=== PATIENT | female | born 1960 | race Caucasian/White ===

== ENCOUNTER → 2017-12-30 14:51 | Outpatient (CLI) | payer OTHER, MEDICAID, SELFPAY ==
[2017-12-30 15:33] LABS: Appearance Urine UA CLEAR; Bilirubin Urine UA NEGATIVE (NEGATIVE); Color Urine UA YELLOW; Glucose Urine UA NEGATIVE (Normal); Ketones Urine UA NEGATIVE (NEGATIVE); Leukocyte Esterase Urine UA 1+ (NEGATIVE); Nitrite Urine UA NEGATIVE (NEGATIVE); Occult Blood Urine UA 1+ (Negative); Protein Urine UA NEGATIVE (Negative); Specific Gravity Urine UA <=1.005 (1.000-1.035); Urobilinogen Urine UA 0.2 E.U./dL (0.2); pH Urine UA 6.5 (4.5-8.0)
[2017-12-30 15:43] LABS: Amorphous Sediment Urine 1+; Bacteria Urine Occasional (0-1); RBC Urine 1-5/HPF (0-5/HPF); Squamous Epithelial Cell Urine 0-1 /HPF; WBC Urine 10-30/HPF (0-5/HPF)
[2017-12-30 15:44] LABS: Culture Indicated Urine Specimen Cultured
== END ==
PROVIDERS: PCP Family Medicine; Visit Provider Family Medicine
DX: R30.0 Dysuria (principal)
CPT/HCPCS: 81001; 87086

== ENCOUNTER → 2017-12-31 09:58 | Outpatient (CLI) | payer OTHER, MEDICAID, SELFPAY ==
[2017-12-31 12:01] LABS: Hepatitis B Surface Antigen NEGATIVE s/c (NEGATIVE)
[2017-12-31 12:18] LABS: HIV 1 and 2 Antibody NEGATIVE (NEGATIVE); Hep C Virus Ab w/Reflex Quant NEGATIVE s/c (NEGATIVE)
[2017-12-31 12:26] LABS: Urine N gonorrhoeae NOT DETECTED
[2017-12-31 12:36] LABS: Urine Chlamydia NOT DETECTED
[2018-01-07 12:50] LABS: Rapid Plasma Reagin NON-REACTIVE
== END ==
PROVIDERS: PCP Family Medicine
DX: Z11.3 Encounter for screening for infections with a predominantly sexual mode of transmission (principal)
CPT/HCPCS: 36415; 86592; 86703; 86803; 87340; 87491; 87591

== ENCOUNTER → 2018-01-01 12:06 | Outpatient (CLI) | payer OTHER, MEDICAID, SELFPAY ==
--- NOTE | 2018-01-01 12:09 | DI.RAD.S_ITS ---
PROCEDURE: XR WRIST RT MIN 3V INDICATIONS: right wrist pain and swelling after blunt injury TECHNIQUE: 3 views of the wrist were acquired. COMPARISON: None. FINDINGS: Bones: No fractures or dislocations. No suspicious bony lesions. Scaphoid view: Not requested. Soft tissues: No suspicious soft tissue calcifications. IMPRESSION: No fracture. No acute osseous lesion. If symptoms and/or clinical suspicion for pathology persists, further assessment with repeat radiographs or advanced imaging (e.g. CT, MRI or bone scan) may be helpful for further assessment. Dictated by: Rhona Noe MD, PhD on 01/01/2018 at 12:16 Approved by: Rhona Noe MD, PhD on 01/01/2018 at 12:17
== END ==
PROVIDERS: PCP Family Medicine; Visit Provider Family Medicine
DX: M25.531 Pain in right wrist (principal)
CPT/HCPCS: 73110

== ENCOUNTER → 2018-01-12 15:47 | Outpatient (CLI) | payer OTHER, MEDICAID, SELFPAY | PROVIDERS: PCP Family Medicine; Visit Provider Family Medicine | DX: N39.0 Urinary tract infection, site not specified (principal) | CPT/HCPCS: 87086 ==

== ENCOUNTER → 2018-02-24 15:04 | Outpatient (CLI) | payer OTHER, MEDICAID, SELFPAY ==
--- NOTE | 2018-02-24 15:08 | DI.RAD.S_ITS ---
PROCEDURE: XR LUMBAR SPINE 2-3V INDICATIONS: Scoliosis TECHNIQUE: 3 views of the lumbar spine were acquired. COMPARISON: None. FINDINGS: Bones: 5 [id number] vertebrae are present. There is normal bony alignment. No vertebral body compression fractures. No suspicious bony lesions. Soft tissues: Overlying bowel gas pattern is normal. No suspicious soft tissue calcifications. IMPRESSION: Degenerative disc disease is mild, but facet osteoarthritis is moderately severefrom C4-S1, to the degree that significant spinal or foraminal stenosis would be expected bilaterally at this region. Dictated by: Franki Prado M.D. on 02/24/2018 at 15:52 Approved by: Franki Prado M.D. on 02/24/2018 at 15:53
--- NOTE | 2018-02-24 15:08 | DI.RAD.S_ITS ---
PROCEDURE: XR CERVICAL SPINE 2V OR 3V INDICATIONS: Scoliosis TECHNIQUE: 3 view(s) of the cervical spine were acquired. COMPARISON: None. FINDINGS: Bones: No fractures or dislocations to the T1 level. The lateral masses of C1 appear intact on the odontoid view. No suspicious bony lesions. There is focal kyphosis centered at C5-6 related to presence of moderately severe degenerative disc disease and endplate osteophyte formation with disc height reduction at this level, without subluxation. A slightly lesser degree of degenerative changes seen at C6-7. On the frontal projection facet osteoarthritis is moderately severe through these areas likely contributing to significant spinal and foraminal stenosis. Soft tissues: No prevertebral soft tissue swelling. IMPRESSION: Moderately severe to severe degenerative disc disease and facet osteoarthritis from C5-C7, most pronounced at C5-6 where focal kyphosis is associated. Significant spinal or foraminal stenosis would be expected, followup by MR scanning may be warranted. Dictated by: Franki Prado M.D. on 02/24/2018 at 15:50 Approved by: Franki Prado M.D. on 02/24/2018 at 15:51
--- NOTE | 2018-02-24 15:08 | DI.RAD.S_ITS ---
PROCEDURE: XR THORACIC SPINE 3V INDICATIONS: Scoliosis TECHNIQUE: 3 views of the thoracic spine were acquired. COMPARISON: None. FINDINGS: Bones: No fractures or dislocations. No suspicious bony lesions. 12 pairs of ribs are noted, and appear intact where visualized. There is minimal convex rightward scoliosis centered at the low thoracic spine Soft tissues: No paravertebral stripe thickening. IMPRESSION: Degenerative disc disease along the thoracic spine is mild, no subluxation is associated. There is no sign of recent compression fracture or chronic compression fracture, and minimal convex rightward scoliosis is centered at the lower third of the thoracic spine. Dictated by: Franki Prado M.D. on 02/24/2018 at 15:51 Approved by: Franki Prado M.D. on 02/24/2018 at 15:52
--- NOTE | 2018-02-24 15:08 | DI.RAD.S_ITS ---
PROCEDURE: XR ELBOW RT MIN 3V INDICATIONS: right elbow pain TECHNIQUE: Pre-views of the elbow were acquired. COMPARISON: None. FINDINGS: Bones: No fractures or dislocations. No suspicious bony lesions. Soft tissues: No elbow joint effusion. No suspicious soft tissue calcifications. IMPRESSION: No, found. Source of elbow pain is not seen. Dictated by: Franki Prado M.D. on 02/24/2018 at 15:53 Approved by: Franki Prado M.D. on 02/24/2018 at 15:53
== END ==
PROVIDERS: PCP Family Medicine; Referring Provider Family Medicine; Visit Provider Family Medicine
DX: M50.30 Other cervical disc degeneration, unspecified cervical region (principal); M47.812 Spondylosis without myelopathy or radiculopathy, cervical region; M40.292 Other kyphosis, cervical region; M51.34 Other intervertebral disc degeneration, thoracic region; M51.36 Other intervertebral disc degeneration, lumbar region; M47.816 Spondylosis without myelopathy or radiculopathy, lumbar region; M25.521 Pain in right elbow
CPT/HCPCS: 72040; 72072; 72100; 73080

== ENCOUNTER → 2018-04-06 15:22 | Outpatient (CLI) | payer OTHER, MEDICAID, SELFPAY ==
--- NOTE | 2018-04-06 15:24 | DI.RAD.S_ITS ---
PROCEDURE: XR FINGER RT MIN 2V INDICATIONS: Right thumb pain TECHNIQUE: AP hand, 2 views of the first finger(s) acquired. COMPARISON: None. FINDINGS: Bones: No fractures or dislocations. No suspicious bony lesions. Soft tissues: No suspicious soft tissue calcifications. IMPRESSION: Mild degenerative osteoarthritis at the base of the first proximal phalanx, and base of the first metacarpal. No subluxation is associated. Dictated by: Franki Prado M.D. on 04/06/2018 at 15:48 Approved by: Franki Prado M.D. on 04/06/2018 at 15:48
== END ==
PROVIDERS: PCP Family Medicine; Visit Provider Family Medicine
DX: M79.644 Pain in right finger(s) (principal); M19.041 Primary osteoarthritis, right hand
CPT/HCPCS: 73140

== ENCOUNTER → 2018-09-13 10:31 | Outpatient (CLI) | payer OTHER, MEDICAID, SELFPAY ==
[2018-09-13 12:03] LABS: Add Manual Diff / Slide Review NO; Basophils Absolute Auto 100 /uL (0-100); Basophils Percent Auto 1.3 % (0-2); Eosinophils Absolute Auto 200 /uL (0-450); Eosinophils Percent Auto 4.2 % (2-4); Hemoglobin 13.8 g/dL (12.0-16.0); Lymphocytes Absolute Auto 1600 /uL (1100-4500); Lymphocytes Percent Auto 28.2 % (25-40); Mean Corpuscular HGB Conc 32.8 % (30-36); Mean Corpuscular Hemoglobin 31.5 PG (26-34); Mean Corpuscular Volume 95.9 fL (80-100); Monocytes Absolute Auto 400 /uL (0-900); Monocytes Percent Auto 7.8 % (3-14); Neutrophils Absolute Auto 3300 /uL (1500-7000); Neutrophils Percent Auto 58.5 % (50-75); Platelet Count 222 X10^3/uL (150-400); Red Blood Cell Count 4.38 X10^6/uL (4.0-5.2); White Blood Cell Count 5.7 X10^3/uL (4.5-11.0)
[2018-09-13 13:33] LABS: Alanine Aminotransferase 28 IU/L (9-52); Albumin 4.4 g/dL (3.5-5.0); Albumin Globulin Ratio 1.4 (1.0-2.8); Alkaline Phosphatase 41 U/L (38-126); Aspartate Aminotransferase 20 IU/L (14-36); BUN Creatinine Ratio 17.8 (6-22); Bilirubin Total 0.7 mg/dL (0.2-1.3); Blood Urea Nitrogen 16 mg/dL (7-17); Calcium 9.4 mg/dL (8.4-10.2); Carbon Dioxide 28 mmol/L (22-32); Chloride 103 mmol/L (98-107); Cholesterol 203 mg/dL (140-199); Estimated Glomerular Filt Rate > 60.0 mL/min (>60); Globulin 3.1 g/dL (1.7-4.1); Glucose 93 mg/dL (70-100); HDL Cholesterol 52 mg/dL (40-60); HEMOLYSIS < 15 (0-50); LDL Cholesterol Calculated 133 mg/dL (<100); Sodium 139 mmol/L (137-145); Total Protein 7.5 g/dL (6.3-8.2); Triglycerides 88 mg/dL (35-150)
[2018-09-13 13:42] LABS: T4 Total Thyroxine 4.88 ug/dL (5.5-11.0)
== END ==
PROVIDERS: PCP Family Medicine; Visit Provider Nurse Practitioner Family
DX: E03.9 Hypothyroidism, unspecified (principal); Z76.0 Encounter for issue of repeat prescription
CPT/HCPCS: 36415; 80053; 80061; 84436; 85025

== ENCOUNTER → 2019-08-02 14:31 | Outpatient (CLI) | payer OTHER, MEDICAID, SELFPAY ==
[2019-08-02 14:41] LABS: Bacteria Urine None Seen; WBC Urine None Seen (0-5/HPF)
[2019-08-02 15:07] LABS: Appearance Urine UA CLEAR; Bilirubin Urine UA NEGATIVE (NEGATIVE); Color Urine UA YELLOW; Glucose Urine UA NEGATIVE (Negative); Ketones Urine UA NEGATIVE (NEGATIVE); Leukocyte Esterase Urine UA NEGATIVE (NEGATIVE); Nitrite Urine UA NEGATIVE (Negative); Occult Blood Urine UA TRACE-INTACT (Negative); Protein Urine UA NEGATIVE (Negative); Urobilinogen Urine UA 0.2 E.U./dL (0.2)
[2019-08-02 15:12] LABS: pH Urine UA 7.5 (4.5-8.0)
[2019-08-02 15:14] LABS: Amorphous Sediment Urine 2+; Culture Indicated Urine Cult Not Indicated; RBC Urine 5-10/HPF (0-5/HPF); Squamous Epithelial Cell Urine 0-1 /HPF (0-5/HPF)
== END ==
PROVIDERS: Visit Provider Registered Nurse
DX: R31.21 Asymptomatic microscopic hematuria (principal)
CPT/HCPCS: 81001

== ENCOUNTER 2019-09-16 21:08 | Emergency (ER) | payer OTHER, MEDICAID, SELFPAY ==
[2019-09-16 21:16] VITALS: BP 119/77; PULSE 76; RESP 18; TEMP 36.1; O2SAT 98
--- NOTE | 2019-09-16 21:34 | PC.NURSE ---
Left jaw swelling with tooth pain;
--- NOTE | 2019-09-16 22:03 | ED_ITS ---
HPI - Skin/Abscess/Foreign Bdy General Chief complaint: Skin/Abscess/Foreign Body Stated complaint: SWELLING OF THE JAW PAIN Time Seen by Provider: 09/16/19 22:04 Source: patient Mode of arrival: Ambulatory Limitations: no limitations History of Present Illness HPI narrative: This is a 60-year-old female comes emergency department with complaint of swelling of the left side of her drop. 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 She states she has been grinding her teeth and not wearing her bite guard. She states she noticed swelling and discomfort in the last 24 hours. She does have a tooth on that side that has been seen by a dentist and told there was decay but that it was stable. Patient thinks that the grinding may have irritated a nerve or caused the swelling. She states that there is pain over several of the teeth but actually a 2 in front of the area where there is decay are the ones that are tender. She has appreciated swelling on the outer cheek and inside the cheek. She has not appreciated any redness. Patient has not had any discharge or drainage. She denies any fevers. No swelling of the oropharynx or tongue. No nausea or vomiting. She states she tried Tylenol with minimal improvement. She then had aspirin and several sips of whiskey along with ice packs for pain control. Related Data Home Medications Medication Instructions Recorded Confirmed [raw adrenals] #0 03/25/17 03/10/18 Previous Rx's Medication Instructions Recorded estradiol 1 mg tablet 1 mg PO QDAY #90 tab 06/02/18 progesterone micronized 100 mg 100 mg PO QDAY #90 cap 06/02/18 capsule sumatriptan succinate 50 mg tablet 50 mg PO BID PRN #60 tab 06/02/18 thyroid (pork) 120 mg tablet 120 mg PO QDAY #30 tab 06/02/18 mirtazapine 45 mg tablet 45 mg PO HS #15 tab 07/14/18 acetaminophen-codeine 1 tab PO TID PRN #5 tab 09/16/19 [Tylenol-Codeine #3] penicillin V potassium 500 mg PO QID #40 tab 09/16/19 Allergies Allergy/AdvReac Type Severity Reaction Status Date / Time No Known Allergies Allergy Uncoded 02/24/18 14:37 Review of Systems Review of Systems ROS Unobtainable: All systems reviewed & are unremarkable except as noted in HPI and below Patient History Medical History Acquired hypothyroidism (Chronic 11/24/16) Ankle pain (Resolved Unknown) Anxiety (Chronic Unknown) Cervical spine disease (Chronic Unknown) CHF (congestive heart failure) (Resolved ~10/2016) Chickenpox (Resolved) Chronic back pain (Chronic Unknown) Fibroids (Resolved 1996) Foot pain (Resolved Unknown) Generalized headaches (Chronic Unknown) Hx of (Resolved Unknown) Hx of heart failure (Resolved ~08/2016) Migraines (Chronic Unknown) Migraines (Chronic Unknown) Mumps (Resolved) Plantar fasciitis (Resolved Unknown) Plantar warts (Resolved 2007) Pneumonia (Resolved ~08/2016) Shoulder pain (Resolved Unknown) Surgical History H/O hysterectomy for benign disease (Resolved ~2006) Hx of appendectomy (Resolved 1996) Hx of section (Resolved 1994) Hx of hysterectomy (Resolved 1996) Hx of tonsillectomy (Resolved 1975) Family History (Updated 02/24/18 @ 13:01 by Carmelita Burleson LPN) Mother Multiple sclerosis Broken bones Social History Smoking Status: Current every day smoker Smoking Status: Current every day smoker Alcohol type: hard liquor Substance Use Type: marijuana Exam Narrative Exam Narrative: GEN: well nourished, well appearing female e, alert and oriented x 3, patient appears to be in mild distress. HEENT: Atraumatic, pupils are equal round reactive to light, extraocular movements are intact, nares are clear, TMs are clear with no fluid, there is no conjunctival pallor. Throat is clear without any exudates, erythema, tonsillar enlargement or uvular deviation, patient does appear to have some dental caries. No fractures to the teeth. There is mild swelling of the left lower cheek over the lower mandible as well on the inside as well as outer, it does not extend toward the neck. I am unable to palpate any fluid collections or fluctuance. No erythema is noted. Patient does not have any swelling of her oropharynx. No stridor difficulty with secretions. She does not any hoarseness or change to her voice. HEART: Regular rate and rhythm without murmur, clicks, rubs. LUNGS:Lungs clear to auscultation, no wheezes, rales, crackles, chest moves symmetrically ABD:bowel sounds normal, soft, non-tender, no guarding, rebound, rigidity, no masses noted, no hepatosplenomegaly MSCL: Non-tender, no muscle atrophy, muscles strength 5/5 upper and lower extremities, full range of motion, normal gait NEURO:CN 2-12 intact, sensation normal SKIN: no erythema, no other skin changes. Initial Vital Signs Initial Vital Signs: Vital Signs Temperature 97 F L 09/16/19 21:16 Pulse Rate 76 09/16/19 21:16 Respiratory Rate 18 09/16/19 21:16 Blood Pressure 119/77 09/16/19 21:16 Pulse Oximetry 98 09/16/19 21:16 Course Orders Ordered: Discontinued Medications Acetaminophen/Codeine Phosphate (Tylenol #3 Prepack) 1 bottle MISC SEEINSTR ONE Stop: 09/16/19 22:27 Last Admin: 09/16/19 22:38 Dose: 1 bottle Documented by: ISA Penicillin V Potassium (Penicillin Vk 250mg Tab Prepack) 1 bottle MISC SEEINSTR ONE Stop: 09/16/19 22:28 Last Admin: 09/16/19 22:38 Dose: 1 bottle Documented by: ISA Vital Signs Vital signs: Vital Signs - 8 hr 09/16/19 21:16 09/16/19 22:50 Temperature 97 F L Pulse Rate 76 72 Respiratory Rate 18 18 Blood Pressure 119/77 121/71 Pulse Oximetry 98 98 Discharge Plan Departure Patient Disposition: Home Clinical Impression: Pain, dental, Dental infection Discharge Date/Time: 09/16/19 23:01 Instructions: Tooth Abscess Activity Restrictions/Additional Instructions: Follow-up with your dentist. Call in the morning or on Thursday for an appointmen t. Take antibiotics until they are completely gone. Your prescription was sent to [facility] Take pain medication as prescribed, do not drink alcohol with this medication. Do not drive, perform hazardous activities or make any major decisions while taking this medication. Return to the ER for fevers greater 100.4 F, increasing swelling of the face, neck, have your tongue, back of her throat, stridor or high-pitched audible wheezing, inability to swallow fluids or other new or concerning symptoms. Prescriptions: New penicillin V potassium 500 mg tablet 500 mg PO QID Qty: 40 RF: 0 acetaminophen-codeine [Tylenol-Codeine #3] 300-30 mg tablet 1 tab PO TID PRN (Reason: pain) Qty: 5 RF: 0 No Action [raw adrenals] Qty: 0 RF: 0 thyroid (pork) [Mathews Thyroid] 120 mg tablet 120 mg PO QDAY Qty: 30 RF: 0 progesterone micronized [Prometrium] 100 mg capsule 100 mg PO QDAY Qty: 90 RF: 0 sumatriptan succinate 50 mg tablet 50 mg PO BID PRN (Reason: migraine headache) Qty: 60 RF: 0 estradiol 1 mg tablet 1 mg PO QDAY Qty: 90 RF: 0 mirtazapine 45 mg tablet 45 mg PO HS Qty: 15 RF: 0
[2019-09-16] MEDS: PENICILLIN 250 MG TAB PREPACK 1 BOTTLE MISC (22:38)
[2019-09-16] MEDS: CODEINE/APAP 30/300 PREPACK 1 BOTTLE MISC (22:38)
[2019-09-16 22:50] VITALS: BP 121/71; PULSE 72; RESP 18; O2SAT 98
== END 2019-09-16 23:01 | disposition home or self-care (01) ==
PROVIDERS: Emergency Provider Emergency Medicine
DX: K04.7 Periapical abscess without sinus (principal)
CPT/HCPCS: 99281; 99282

== ENCOUNTER 2019-09-17 14:04 | Emergency (ER) | payer OTHER, MEDICAID, SELFPAY ==
[2019-09-17 14:13] VITALS: BP 117/75; PULSE 94; RESP 18; TEMP 37.4; O2SAT 99
--- NOTE | 2019-09-17 14:49 | ED_ITS ---
HPI - Dental/Oral <BAY Jon - Last Filed: 09/17/19 23:38> General Chief complaint: Dental/Oral Stated complaint: face swelling; states reaction to medication Time Seen by Provider: 09/17/19 14:21 Source: patient Mode of arrival: Ambulatory Limitations: no limitations History of Present Illness HPI Narrative: This is a 58-year-old female, smoker, who return to ED from last night's visit with the left side mouth swelling and stating possible allergic reaction to medication penicillin. Patient states she has been stressed recently and clenching her teeth during sleep and thinks this may have caused irritated nerve and has noticed swelling for last 2 days. She was evaluated in this ED yesterday was prescribed penicillin for possible dental infection yesterday when she visited in ED. However, she states every time she takes penicillin, the swelling on her left side face gets worse. Patient reports the swelling in her left side faced was about 1/4 last night as compared to today. Patient denies fever, chills, nausea or vomiting. Patient denies discharge or drainage. Patient reports swelling to her outer and inside cheek without redness or dental pain. Patient denies dyspnea or swelling to her throat, tongue or difficulty swallowing. Patient had picked up codeine this morning from the pharmacy that she was prescribed last night and it has been helping wi th discomfort. Patient states she does not have known tooth decay and seeks dental care from Dental school. Last evaluation was about 5 months ago. Related Data Home Medications Medication Instructions Recorded Confirmed [raw adrenals] #0 03/25/17 03/10/18 Previous Rx's Medication Instructions Recorded estradiol 1 mg tablet 1 mg PO QDAY #90 tab 06/02/18 progesterone micronized 100 mg 100 mg PO QDAY #90 cap 06/02/18 capsule sumatriptan succinate 50 mg tablet 50 mg PO BID PRN #60 tab 06/02/18 thyroid (pork) 120 mg tablet 120 mg PO QDAY #30 tab 06/02/18 mirtazapine 45 mg tablet 45 mg PO HS #15 tab 07/14/18 acetaminophen-codeine 1 tab PO TID PRN #5 tab 09/16/19 [Tylenol-Codeine #3] penicillin V potassium 500 mg PO QID #40 tab 09/16/19 amoxicillin-pot clavulanate 1 tab PO BID #20 tab 02/01/20 [Augmentin] Allergies Allergy/AdvReac Type Severity Reaction Status Date / Time No Known Drug Allergies Allergy Verified 09/17/19 14:18 Review of Systems <BAY Jon - Last Filed: 09/17/19 23:38> Review of Systems Narrative: General: Denies fever, chills, fatigue, malaise, sweats. HEENT: See HPI Respiratory: Denies dyspnea, cough, wheezing, hemoptysis, sputum. Cardiovascular: Denies chest pain, palpitations, orthopnea, edema. Gastrointestinal: Denies nausea, vomiting, abdominal pain, diarrhea, constipation, melena. : Denies dysuria, frequency, incontinence, hematuria, urinary retention. Musculoskeletal: Denies weakness, joint pain or bony pain. Skin: Denies rash, skin lesions, or other. Neurologic: Denies weakness, headache, numbness, change in speech, confusion, seizures, incoordination. Psychiatric: No concerning psychosocial issues. 12-point review of systems is negative except for those stated above. Patient History <BAY Jon - Last Filed: 09/17/19 23:38> Medical History Acquired hypothyroidism (Chronic 11/24/16) Ankle pain (Resolved Unknown) Anxiety (Chronic Unknown) Cervical spine disease (Chronic Unknown) CHF (congestive heart failure) (Resolved ~10/2016) Chickenpox (Resolved) Chronic back pain (Chronic Unknown) Fibroids (Resolved 1996) Foot pain (Resolved Unknown) Generalized headaches (Chronic Unknown) Hx of (Resolved Unknown) Hx of heart failure (Resolved ~08/2016) Migraines (Chronic Unknown) Migraines (Chronic Unknown) Mumps (Resolved) Plantar fasciitis (Resolved Unknown) Plantar warts (Resolved 2007) Pneumonia (Resolved ~08/2016) Shoulder pain (Resolved Unknown) Surgical History H/O hysterectomy for benign disease (Resolved ~2006) Hx of appendectomy (Resolved 1996) Hx of section (Resolved 1994) Hx of hysterectomy (Resolved 1996) Hx of tonsillectomy (Resolved 1975) Family History Mother Multiple sclerosis Broken bones Social History Smoking Status: Current every day smoker Smoking Status: Current every day smoker alcohol intake frequency: other Alcohol type: hard liquor Substance Use Type: marijuana Exam <BAY Jon - Last Filed: 09/17/19 23:38> Narrative Exam Narrative: General appearance: well developed, well nourished, in no acute distress, anxious. Head: normocephalic, atraumatic, no scalp lesions, non-tender. ENT: Bilateral auditory canals and tympanic membranes clear. Hearing grossly intact. Nose without bleeding, purulent discharge, septal hematoma or deviation. Turbinate without erythema or swelling. Facial sinuses nontender to palpate. Mucous membrane moist. Throat without erythema, tonsillar hypertrophy or exudate. Uvula in midline, airway patent. Possible dental caries to L lower 1st and 2nd molar but no redness or drainage appreciated. Moderated swelling to left lower cheek and over the lower outside mandible, , partial lower lip and buccal region not extending to neck. There was no significant redness, warmth, fluctuance noted per palpation. Patient was able to manage her own secretions without difficulty. She was able to speak full sentences without difficulty. There was no voice change. Neck/Thyroid: neck supple, full range of motion, no visible masses or meningeal signs. No JVD, non-tender to palpate cervical adenopathy. Mild swelling to submandibular lymph nodes but without pain. Skin: no suspicious rashes, lesions over visible areas. Warm and dry and appropriate color for ethnicity. Heart: no clubbing, no cyanosis, no edema. S1 and S2 normal. RRR w/o murmurs, clicks, or bruits. Lungs: Breathing even and unlabored. No stridor. No accessory muscles used. Able to speak in full sentences. Chest: normal shape and expansion. Abdomen: non-obese, non-distended. Neurologic: alert and oriented. 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 Psych: good eye contact, normal affect. Initial Vital Signs Initial Vital Signs: Vital Signs Temperature 99.4 F 09/17/19 14:13 Pulse Rate 94 H 09/17/19 14:13 Respiratory Rate 18 09/17/19 14:13 Blood Pressure 117/75 09/17/19 14:13 Pulse Oximetry 99 09/17/19 14:13 <Isidro Castillo DO - Last Filed: 09/18/19 07:35> Initial Vital Signs Initial Vital Signs: Vital Signs Temperature 99.4 F 09/17/19 14:13 Pulse Rate 94 H 09/17/19 14:13 Respiratory Rate 18 09/17/19 14:13 Blood Pressure 117/75 09/17/19 14:13 Pulse Oximetry 99 09/17/19 14:13 Scores <BAY Jon - Last Filed: 09/17/19 23:38> GCS [place] coma scale eye opening: Spontaneous [place] coma scale verbal response: Orientated [place] coma scale motor response: Obey commands Beatriz coma scale total score: 15 Course <BAY Jon - Last Filed: 09/17/19 23:38> Orders Ordered: Discontinued Medications Amoxicillin/Clavulanate Potassium (Augmentin 875-125 Mg) 1 tab PO NOW ONE Stop: 09/17/19 15:50 Last Admin: 09/17/19 16:05 Dose: 1 tab Documented by: TRINA Sodium Chloride (Normal Saline 0.9%) 1,000 mls @ 1,000 mls/hr IV BOLUS ONE Stop: 09/17/19 16:48 Last Infusion: 09/17/19 16:52 Dose: 0 mls/hr Documented by: Infusion: 09/17/19 16:12 Dose: 0 mls/hr Documented by: Admin: 09/17/19 16:05 Dose: 1,000 mls/hr Documented by: TRINA Vital Signs Vital signs: Vital Signs - 8 hr 09/17/19 15:32 Pulse Rate 80 Respiratory Rate 14 Blood Pressure [Right Arm] 116/79 Pulse Oximetry 99 <Isidro Castillo DO - Last Filed: 09/18/19 07:35> Orders Ordered: Discontinued Medications Amoxicillin/Clavulanate Potassium (Augmentin 875-125 Mg) 1 tab PO NOW ONE Stop: 09/17/19 15:50 Last Admin: 09/17/19 16:05 Dose: 1 tab Documented by: TRINA Sodium Chloride (Normal Saline 0.9%) 1,000 mls @ 1,000 mls/hr IV BOLUS ONE Stop: 09/17/19 16:48 Last Infusion: 09/17/19 16:52 Dose: 0 mls/hr Documented by: Infusion: 09/17/19 16:12 Dose: 0 mls/hr Documented by: Admin: 09/17/19 16:05 Dose: 1,000 mls/hr Documented by: TRINA Vital Signs Vital signs: Vital Signs - 8 hr 09/17/19 15:32 Pulse Rate 80 Respiratory Rate 14 Blood Pressure [Right Arm] 116/79 Pulse Oximetry 99 MDM - Dental/Oral <Jack Farmer-SanjuBAY - Last Filed: 09/17/19 23:38> Differential Diagnosis Differential diagnosis: Likely dental caries, dental abscess and other (salivary gland swelling, tumor, lymphadenopathy) Medical Records Attestation: I reviewed the patient's medical records. Lab Data Attestation: I reviewed the patient's lab results. Result diagrams: 09/17/19 15:00 09/17/19 15:00 Labs: Lab Results 09/17/19 09/17/19 Range/Units 15:00 15:00 WBC 11.3 H (4.5-11.0) X10^3/uL RBC 4.08 (4.0-5.2) X10^6/uL Hgb 13.2 (12.0-16.0) g/dL Hct 39.1 (36-46) % MCV 95.8 (80-100) fL MCH 32.3 (26-34) PG MCHC 33.7 (30-36) % RDW 13.2 (11.6-14.8) % Plt Count 210 (150-400) X10^3/uL Neut % (Auto) 81.7 H (50-75) % Lymph % (Auto) 8.1 L (25-40) % [place] % (Auto) 9.0 (3-14) % Eos % (Auto) 0.5 L (2-4) % Baso % (Auto) 0.7 (0-2) % Neut # (Auto) 9200 H (8425-3105) /uL Lymph # (Auto) 900 L (7587-0748) /uL [place] # (Auto) 1000 H (0-900) /uL Eos # (Auto) 100 (0-450) /uL Baso # (Auto) 100 (0-100) /uL Sodium 138 (137-145) mmol/L Potassium 4.1 (3.4-5.1) mmol/L Chloride 101 (98-107) mmol/L Carbon Dioxide 28 (22-32) mmol/L BUN 13 (7-17) mg/dL Creatinine 0.80 (0.52-1.04) mg/dL Estimated GFR > 60.0 (>60) mL/min BUN/Creatinine Ratio 16.3 (6-22) Glucose 88 (80-110) mg/dL Calcium 9.9 (8.4-10.2) mg/dL Imaging Data CT-Facial soft tissue: Radiologist's Impression: [address] [address] [address] Scan Report Addendum Patient: Gregoria BolanosMR#: [id number] : 9Acct:[id number] Age/Sex: 58 / FDate of Service: 09/17/19 Loc: ED Accession Number: [id number] Procedure: CT facial bones w con Ordering Provider: Jack Mcconnell ADDENDUM This report includes an Addendum and supersedes previous reports for this exam. PROCEDURE: CT FACIAL BONES W CON INDICATIONS: Clinical concern for dental abscess on L side face, face swelling, pain TECHNIQUE: After the administration of intravenous contrast, 2.5 mm axial sections acquired from the mid-neck to the frontal sinuses, with coronal and sagittal reformats. For radiation dose reduction, the following was used: automated exposure control, adjustment of mA and/or kV according to patient size. COMPARISON: None. FINDINGS: Image quality: Excellent. Soft tissues: Generalized soft tissue swelling can be seen involving the left periventricular region. No focal fluid collection is seen to suggest an abscess. Mild prominence of left submental lymph nodes can be seen. Vascular: Visualized vascular structures appear patent throughout. Bony vascular foramina and canals appear normal. Bones: No yeny focal dental abnormality can be seen. Facial bones appear intact, without fractures, erosions, or destruction. Visualized portions of the skull base and auditory canals also appear normal. Sinuses: Paranasal sinuses are aerated without fluid levels, mucosal thic kening, or mucoceles. Mastoid air cells are aerated. IMPRESSION: Left perimandibular soft tissue swelling, without a drainable abscess. No dental source is detected. Dictated by: Bipin Esteban M.D. on 09/17/2019 at 15:06 Approved by: Bipin Esteban M.D. on 09/17/2019 at 15:09 ADDENDUM: Additional images are submitted with metal suppressing algorithm. No new diagnosis. Dictated by: Bipin Esteban M.D. on 09/17/2019 at 15:46 Approved by: Bipin Esteban M.D. on 09/17/2019 at 15:46 Addendum Dictated By:Bipin Esteban MD Addendum Signed By: Addendum Cosigned By: DD/ /05/1649 TD/TT: 09/17/1909/05/1649 PROCEDURE: CT FACIAL BONES W CON INDICATIONS: Clinical concern for dental abscess on L side face, face swelling, pain TECHNIQUE: After the administration of intravenous contrast, 2.5 mm axial sections acquired from the mid-neck to the frontal sinuses, with coronal and sagittal reformats. For radiation dose reduction, the following was used: automated exposure control, adjustment of mA and/or kV according to patient size. COMPARISON: None. FINDINGS: Image quality: Excellent. Soft tissues: Generalized soft tissue swelling can be seen involving the left periventricular region. No focal fluid collection is seen to suggest an abscess. Mild prominence of left submental lymph nodes can be seen. Vascular: Visualized vascular structures appear patent throughout. Bony vascular foramina and canals appear normal. Bones: No yeny focal dental abnormality can be seen. Facial bones appear intact, without fractures, erosions, or destruction. Visualized portions of the skull base and auditory canals also appear normal. Sinuses: Paranasal sinuses are aerated without fluid levels, mucosal thickening, or mucoceles. Mastoid air cells are aerated. IMPRESSION: Left perimandibular soft tissue swelling, without a drainable abscess. No dental source is detected. Dictated by: Bpiin Esteban M.D. on 09/17/2019 at 15:06 Approved by: Bipin Esteban M.D. on 09/17/2019 at 15:09 [facility] Narrative Medical decision making narrative: This patient is a return patient from yesterday visit and she was diagnosed with possible dental caries and discharged to home with penicillin. Patient has a facial swelling became worse after 3 doses of penicillin intake. Patient denies fever, chills, fatigue, malaise. Patient was convinced that she was having a allergy reaction to penicillin and assured this is unlikely due to you need lateral facial swelling without oropharyngeal swelling, dyspnea, chest pain, rashes. CT of soft facial tissue was obtained to rule out dental abscess or abnormalities. Mild leukocytosis of 11.3 with neutrophil of 81.7%. Facial CT test shows generalize soft tissue swelling in left perimandibular region without drainable abscess. There was mild prominence of left submental lymph nodes. There was no yeny focal dental abnormality. Patient's medication has been changed to Augmentin and 1st dose has been provided while in ED and patient discharged to home with b.i.d. course for [address] test was done, patient wanted to leave ED when IV fluid has been ordered for the patient. Patient actually signed Against Medical Advice form and left ED w/o getting IVF. She then shortly after return to ED after she made phone calls. Since patient does not have fever with stable vital signs, able to tolerate fluids, there is no dysphagia will try outpatient therapy with oral antibiotic medications. Discussed Strict return precautions such as breathing difficulty, dysphagia, unable to manage oral secretion, fever, pain, or any acute worsening symptoms to return to ED and patient verbalized understanding and she was advised to follow up with her primary care physician on Thursday with Dr. Hidalgo for an re-evaluation. Patient verbalized understanding and agrees with the treatment plan. <Isidro Castillo, DO - Last Filed: 09/18/19 07:35> Lab Data Labs: Lab Results 09/17/19 09/17/19 Range/Units 15:00 15:00 WBC 11.3 H (4.5-11.0) X10^3/uL RBC 4.08 (4.0-5.2) X10^6/uL Hgb 13.2 (12.0-16.0) g/dL Hct 39.1 (36-46) % MCV 95.8 (80-100) fL MCH 32.3 (26-34) PG MCHC 33.7 (30-36) % RDW 13.2 (11.6-14.8) % Plt Count 210 (150-400) X10^3/uL Neut % (Auto) 81.7 H (50-75) % Lymph % (Auto) 8.1 L (25-40) % [place] % (Auto) 9.0 (3-14) % Eos % (Auto) 0.5 L (2-4) % Baso % (Auto) 0.7 (0-2) % Neut # (Auto) 9200 H (7344-8659) /uL Lymph # (Auto) 900 L (6881-0603) /uL [place] # (Auto) 1000 H (0-900) /uL Eos # (Auto) 100 (0-450) /uL Baso # (Auto) 100 (0-100) /uL Sodium 138 (137-145) mmol/L Potassium 4.1 (3.4-5.1) mmol/L Chloride 101 (98-107) mmol/L Carbon Dioxide 28 (22-32) mmol/L BUN 13 (7-17) mg/dL Creatinine 0.80 (0.52-1.04) mg/dL Estimated GFR > 60.0 (>60) mL/min BUN/Creatinine Ratio 16.3 (6-22) Glucose 88 (80-110) mg/dL Calcium 9.9 (8.4-10.2) mg/dL Discharge Plan Departure Patient Disposition: Home Clinical Impression: Submandibular abscess Discharge Date/Time: 09/17/19 17:04 Activity Restrictions/Additional Instructions: You have been diagnosed with [submandibular abscess without drainable abscess per CT test. We'll change your antibiotic medication from penicillin to Augmentin. You were given 1st dose here in ED. please take it twice a day for 10 days.]. What to do: *Take your medications as directed. Your medication has been transmitted to [facility] in [place]. *Follow up with your primary care provider in 2-3 days, call for an appointment. Let them know you were seen in the ED and that we asked you to be seen in follow up. *Return to ED if you have any new, worsening, or concerning symptoms, such as [ chest pain, high fever, breathing difficulty, unable to billing manager owns saliva out or oral secretion, chest pain, pain or any acute concerns]. Prescriptions: New amoxicillin-pot clavulanate [Augmentin] 875-125 mg tablet 1 tab PO BID Qty: 20 RF: 0 No Action [raw adrenals] Qty: 0 RF: 0 thyroid (pork) [[place] Thyroid] 120 mg tablet 120 mg PO QDAY Qty: 30 RF: 0 progesterone micronized [Prometrium] 100 mg capsule 100 mg PO QDAY Qty: 90 RF: 0 sumatriptan succinate 50 mg tablet 50 mg PO BID PRN (Reason: migraine headache) Qty: 60 RF: 0 estradiol 1 mg tablet 1 mg PO QDAY Qty: 90 RF: 0 mirtazapine 45 mg tablet 45 mg PO HS Qty: 15 RF: 0 penicillin V potassium 500 mg tablet 500 mg PO QID Qty: 40 RF: 0 acetaminophen-codeine [Tylenol-Codeine #3] 300-30 mg tablet 1 tab PO TID PRN (Reason: pain) Qty: 5 RF: 0 <Isidro Castillo, DO - Last Filed: 09/18/19 07:35> Sign Out Provider Sign Out Attestation: Dr Castillo Co-Sign Statement: I was available for consultation during this patient's emergency department visit. This chart is signed by myself for administrative purposes only. I did not have direct contact with this patient during this visit. They were seen independently by the APC.
[2019-09-17 15:06] LABS: Add Manual Diff / Slide Review NO; Basophils Absolute Auto 100 /uL (0-100); Basophils Percent Auto 0.7 % (0-2); Eosinophils Absolute Auto 100 /uL (0-450); Eosinophils Percent Auto 0.5 % (2-4); Hematocrit 39.1 % (36-46); Hemoglobin 13.2 g/dL (12.0-16.0); Lymphocytes Absolute Auto 900 /uL (1100-4500); Lymphocytes Percent Auto 8.1 % (25-40); Mean Corpuscular HGB Conc 33.7 % (30-36); Mean Corpuscular Hemoglobin 32.3 PG (26-34); Mean Corpuscular Volume 95.8 fL (80-100); Monocytes Absolute Auto 1000 /uL (0-900); Neutrophils Absolute Auto 9200 /uL (1500-7000); Neutrophils Percent Auto 81.7 % (50-75); Platelet Count 210 X10^3/uL (150-400); Red Blood Cell Count 4.08 X10^6/uL (4.0-5.2); Red Cell Distribution Width 13.2 % (11.6-14.8); White Blood Cell Count 11.3 X10^3/uL (4.5-11.0)
--- NOTE | 2019-09-17 15:11 | DI.CT.S_ITS ---
PROCEDURE: CT FACIAL BONES W CON INDICATIONS: Clinical concern for dental abscess on L side face, face swelling, pain TECHNIQUE: After the administration of intravenous contrast, 2.5 mm axial sections acquired from the mid-neck to the frontal sinuses, with coronal and sagittal reformats. For radiation dose reduction, the following was used: automated exposure control, adjustment of mA and/or kV according to patient size. COMPARISON: None. FINDINGS: Image quality: Excellent. Soft tissues: Generalized soft tissue swelling can be seen involving the left periventricular region. No focal fluid collection is seen to suggest an abscess. Mild prominence of left submental lymph nodes can be seen. Vascular: Visualized vascular structures appear patent throughout. Bony vascular foramina and canals appear normal. Bones: No yeny focal dental abnormality can be seen. Facial bones appear intact, without fractures, erosions, or destruction. Visualized portions of the skull base and auditory canals also appear normal. Sinuses: Paranasal sinuses are aerated without fluid levels, mucosal thickening, or mucoceles. Mastoid air cells are aerated. IMPRESSION: Left perimandibular soft tissue swelling, without a drainable abscess. No dental source is detected. Dictated by: Bipin Esteban M.D. on 09/17/2019 at 15:06 Approved by: Bipin Esteban M.D. on 09/17/2019 at 15:09
[2019-09-17 15:17] LABS: BUN Creatinine Ratio 16.3 (6-22); Blood Urea Nitrogen 13 mg/dL (7-17); Calcium 9.9 mg/dL (8.4-10.2); Carbon Dioxide 28 mmol/L (22-32); Chloride 101 mmol/L (98-107); Estimated Glomerular Filt Rate > 60.0 mL/min (>60); Glucose 88 mg/dL (80-110); HEMOLYSIS < 15 (0-50); Potassium 4.1 mmol/L (3.4-5.1); Sodium 138 mmol/L (137-145)
[2019-09-17 15:32] VITALS: BP 116/79; PULSE 80; RESP 14; O2SAT 99
--- NOTE | 2019-09-17 15:51 | PC.NURSE ---
Pt initially refused CT, then spoke with provider and agreed. Pt upset that CT is not happening quickly enough at this time. Pt up to bathroom, CT met her at door with wheel chair.
--- NOTE | 2019-09-17 16:04 | PC.NURSE ---
Provider at bedside discussing plan with patient.
[2019-09-17] MEDS: SODIUM CHLORIDE 0.9% 1,000 ML 1000 ML IV (16:05)
[2019-09-17] MEDS: AMOXICILLIN/CLAV 875/125 MG 1 TAB PO (16:05)
--- NOTE | 2019-09-17 16:14 | PC.NURSE ---
Patient requesting to leave ED with IV fluids infusing to make phone calls outside. Informed pt she would need to have IV removed to leave building. Pt continually requesting po food and fluids though told that she was NPO except for medications until CT report comes back as she may need intervention. Pt states she wants to leave and will return after phone calls. Informed we were happy to get her a phone or utilize her cell phone. She states she can only call from outside. IV discontinued. Signed AMA form in case of no return.
--- NOTE | 2019-09-17 16:17 | PC.NURSE ---
Pt returned with coffee in hand.
== END 2019-09-17 17:04 | disposition home or self-care (01) ==
PROVIDERS: Emergency Provider Nurse Practitioner Family
DX: K12.2 Cellulitis and abscess of mouth (principal); R22.0 Localized swelling, mass and lump, head
CPT/HCPCS: 36415; 70487; 80048; 85025; 99284; Q9967

== ENCOUNTER → 2020-08-28 14:26 | Outpatient (CLI) | payer OTHER, MEDICAID, SELFPAY ==
[2020-08-28 16:03] LABS: Thyroid Stimulating Hormone 2.45 uIU/mL (0.47-4.68)
== END ==
PROVIDERS: PCP Registered Nurse; Referring Provider Registered Nurse; Visit Provider Registered Nurse
DX: E03.9 Hypothyroidism, unspecified (principal)
CPT/HCPCS: 36415; 84443

== ENCOUNTER 2020-10-13 22:04 | Emergency (ER) | payer OTHER, MEDICAID, SELFPAY ==
[2020-10-13 22:15] VITALS: BP 129/72; PULSE 82; RESP 17; TEMP 36.8; O2SAT 96; BMI 19.5
--- NOTE | 2020-10-13 23:19 | ED_ITS ---
HPI - Animal Bite General Chief Complaint: Animal Bite Stated Complaint: cat bite left hand Time Seen by Provider: 10/13/20 23:08 Source: patient Mode of arrival: Ambulatory Limitations: no limitations History of Present Illness HPI narrative: Patient is a 59-year-old female who presents with cat bite to the left hand. She says that she has adopted a partially feral cat over the last [address] does seem to be nice to her bed it has bit her once before. It bit her today's she has puncture rivera around her thumb. No erythema swelling streaking coming up. She says previously she was put on Augmentin and like antibiotics now. She denies any numbness tingling or weakness. Although she does describes a burning sensation MD complaint: animal bite Onset (ago): hour(s) Animal: cat Description of animal: immunizations unknown Mechanism: bite Related Data Home Medications Medication Instructions Recorded Confirmed [raw adrenals] #0 03/25/17 03/10/18 Previous Rx's Medication Instructions Recorded estradiol 1 mg tablet 1 mg PO QDAY #90 tab 06/02/18 progesterone micronized 100 mg 100 mg PO QDAY #90 cap 06/02/18 capsule sumatriptan succinate 50 mg tablet 50 mg PO BID PRN #60 tab 06/02/18 thyroid (pork) 120 mg tablet 120 mg PO QDAY #30 tab 06/02/18 mirtazapine 45 mg tablet 45 mg PO HS #15 tab 07/14/18 acetaminophen-codeine 1 tab PO TID PRN #5 tab 09/16/19 [Tylenol-Codeine #3] penicillin V potassium 500 mg PO QID #40 tab 09/16/19 amoxicillin-pot clavulanate 1 tab PO BID #20 tab 09/17/19 [Augmentin] amoxicillin-pot clavulanate 1 tab PO BID #14 tab 10/13/20 [Augmentin] Allergies Allergy/AdvReac Type Severity Reaction Status Date / Time No Known Drug Allergies Allergy Verified 09/17/19 14:18 Review of Systems Review of Systems Narrative: GENERAL: Denies chills,fever HEENT: Denies throat pain RESPIRATORY: Denies dyspnea, cough, wheezing CARDIOVASCULAR: Denies chest pain, palpitations GASTROINTESTINAL: Denies nausea, vomiting MUSCULOSKELETAL: Denies extremity pain, injury SKIN: See HPI NEUROLOGIC: Denies weakness, dizziness, headache, numbness 8 point review of systems is negative except for those stated above and HPI Patient History Medical History Acquired hypothyroidism (11/24/16) Ankle pain (Unknown) Anxiety (Unknown) Cervical spine disease (Unknown) CHF (congestive heart failure) (~10/2016) Chickenpox Chronic back pain (Unknown) Fibroids (1996) Foot pain (Unknown) Generalized headaches (Unknown) Hx of (Unknown) Hx of heart failure (~08/2016) Migraines (Unknown) Migraines (Unknown) Mumps Plantar fasciitis (Unknown) Plantar warts (2007) Pneumonia (~08/2016) Shoulder pain (Unknown) Surgical History H/O hysterectomy for benign disease (~2006) Hx of appendectomy (1996) Hx of section (1994) Hx of hysterectomy (1996) Hx of tonsillectomy (1975) Family History Mother Multiple sclerosis Broken bones Social History Smoking Status: Current every day smoker Smoking Status: Current every day smoker alcohol intake frequency: other Alcohol type: hard liquor Substance Use Type: marijuana Exam Initial Vital Signs Initial Vital Signs: Vital Signs Temperature 98.2 F 10/13/20 22:15 Pulse Rate 82 10/13/20 22:15 Respiratory Rate 17 10/13/20 22:15 Blood Pressure 129/72 10/13/20 22:15 Pulse Oximetry 96 10/13/20 22:15 GENERAL: Well-appearing, well-nourished and in no acute distress. CARDIOVASCULAR: peripheral pulses in tact, cap refill <2 sec RESPIRATORY: No respiratory distress, speaks in full sentences without difficulty EXTREMITIES: Normal range of motion, no clubbing or edema. Neurovascularly intact NEUROLOGICAL: Cranial nerves II through XII grossly intact. Normal gait and speech. SKIN: Puncture wounds noted on left thumb no swelling erythema or streaking Course Orders Ordered: Discontinued Medications Amoxicillin/Clavulanate Potassium (Amoxicillin/Clav 875/125 Mg) 1 tab PO NOW ONE Stop: 10/13/20 23:27 Last Admin: 10/13/20 23:31 Dose: 1 tab Documented by: ORV[place]LE Diphtheria/Tetanus/Acell Pertussis (Tet,Diph,Pertuss(Acell),Vac/Pf 0.5 Ml Syringe) 0.5 ml IM .ONCE ONE Stop: 10/13/20 23:27 Last Admin: 10/13/20 23:31 Dose: 0.5 ml Documented by: [place]LE Vital Signs Vital signs: Vital Signs - 8 hr 10/13/20 22:15 10/13/20 23:32 Temperature 98.2 F Pulse Rate 82 80 Respiratory Rate 17 16 Blood Pressure 129/72 124/72 Pulse Oximetry 96 97 Discharge Plan Departure Patient Disposition: Home Clinical Impression: Cat bite Qualifiers: Encounter type: initial encounter Qualified Code(s): W55.01XA - Bitten by cat, initial encounter Instructions: DI for Cat Bite Activity Restrictions/Additional Instructions: *You have been diagnosed with cat bite *What to do: Keep clean and dry with soap and water *Continue to take medications as directed Augmentin 875 mg twice a day for 7 days--> SENT TO [facility] *Follow up with your primary care provider in 2-3 days *Return to ER if you should have increasing redness pus swelling pain or any new, worsening or concerning symptoms Prescriptions: New amoxicillin-pot clavulanate [Augmentin] 875-125 mg tablet 1 tab PO BID Qty: 14 RF: 0 No Action [raw adrenals] Qty: 0 RF: 0 thyroid (pork) [Ericson Thyroid] 120 mg tablet 120 mg PO QDAY Qty: 30 RF: 0 progesterone micronized [Prometrium] 100 mg capsule 100 mg PO QDAY Qty: 90 RF: 0 sumatriptan succinate 50 mg tablet 50 mg PO BID PRN (Reason: migraine headache) Qty: 60 RF: 0 estradiol 1 mg tablet 1 mg PO QDAY Qty: 90 RF: 0 mirtazapine 45 mg tablet 45 mg PO HS Qty: 15 RF: 0 penicillin V potassium 500 mg tablet 500 mg PO QID Qty: 40 RF: 0 acetaminophen-codeine [Tylenol-Codeine #3] 300-30 mg tablet 1 tab PO TID PRN (Reason: pain) Qty: 5 RF: 0 amoxicillin-pot clavulanate [Augmentin] 875-125 mg tablet 1 tab PO BID Qty: 20 RF: 0 Referrals: Kiran Arevalo ARNP [Primary Care Provider] -
[2020-10-13] MEDS: AMOXICILLIN/CLAV 875/125 MG 1 TAB PO (23:31)
[2020-10-13] MEDS: TET,DIPH,PERTUSS(ACELL),VAC/PF 0.5 ML SYRINGE IM (23:31)
[2020-10-13 23:32] VITALS: BP 124/72; PULSE 80; RESP 16; O2SAT 97
--- NOTE | 2020-10-13 23:37 | PC.NURSE ---
Patient declined waiting 15 minutes after medication, she states she has had both medications in the past without any issues and is aware of signs and symptoms of allergic reaction.
== END 2020-10-13 23:37 | disposition home or self-care (01) ==
PROVIDERS: Emergency Provider Emergency Medicine; PCP Registered Nurse
DX: S61.452A Open bite of left hand, initial encounter (principal); W55.01XA Bitten by cat, initial encounter; Z23 Encounter for immunization
CPT/HCPCS: 90471; 99281; 99283; 90715

== ENCOUNTER → 2021-05-18 14:06 | Outpatient (CLI) | payer OTHER, MEDICAID, SELFPAY | PROVIDERS: PCP Registered Nurse; Visit Provider Physician Assistant | DX: R30.9 Painful micturition, unspecified (principal) | CPT/HCPCS: 81002; 87086 ==